=== PATIENT | female | born 1965 | race Caucasian/White ===

== ENCOUNTER 2022-05-16 18:13 | Emergency (ER) | payer BC, OTHER ==
[~2022-05-16] VITALS: Ht 167.6 cm; Wt 70.3 kg
[2022-05-16] MEDS ORDERED: LIDOCAINE HCL 1% LOCAL INJ 20 ML VIAL INJ ONE (18:45)
[2022-05-16] MEDS: TETANUS/DIPHTHERIA TOX ADULT 0.5 ML SYR IM ONE (18:48)
[2022-05-16] MEDS ORDERED: LIDOCAINE 1% 10 ML MULTIDOSE VIAL IJ ONE (18:58)
[2022-05-16] MEDS: BACITRACIN ZINC 0.9GM TP ONE (19:15)
[2022-05-16] MEDS ORDERED: CEPHALEXIN500 M1 PO (19:15)
[2022-05-16] MEDS ORDERED: BACITRACIN ZINC 0.9GM TP ONE (19:26)
[2022-05-16 19:58] VITALS: BP 109/84
== END 2022-05-16 19:30 | disposition home or self-care (01) ==
LOC: ER 18:21
DX: S61.412A Laceration without foreign body of left hand, initial encounter (principal); W45.8XXA Other foreign body or object entering through skin, initial encounter; Y92.89 Other specified places as the place of occurrence of the external cause
CPT/HCPCS: 90714; 99283

== ENCOUNTER 2022-05-18 12:24 | Emergency (ER) | payer BC ==
[~2022-05-18] VITALS: Ht 167.6 cm; Wt 70.3 kg
[~2022-05-18 12:24] MED LIST: CEPHALEXIN500 M1 PO
[2022-05-18] MEDS ORDERED: BACTRIM DS TAB1 EACH PO (12:57)
[2022-05-18] MEDS ORDERED: AUGMENTIN 500-1 EACH PO (12:57)
== END 2022-05-18 13:02 | disposition home or self-care (01) ==
LOC: ER 12:34
DX: L03.114 Cellulitis of left upper limb (principal)
CPT/HCPCS: 99282

== ENCOUNTER 2022-05-19 00:18 | Emergency (ER) | payer BC ==
[~2022-05-19] VITALS: Ht 167.6 cm; Wt 70.3 kg
[~2022-05-19 00:18] MED LIST changes: +AUGMENTIN 500-1 EACH PO; +BACTRIM DS TAB1 EACH PO
== END 2022-05-19 00:30 | disposition left against medical advice (07) ==
LOC: ER 00:22
DX: Z48.00 Encounter for change or removal of nonsurgical wound dressing (principal)